=== PATIENT | female | born 1975 | race American Indian/Alaskan Native ===

== ENCOUNTER 2017-04-04 20:40 | Emergency (ER) | payer OTHER ==
[2017-04-04 21:24] LABS: Basophils % (Auto) 0.7 % (0.0-1.8); Eosinophils % (Auto) 2.3 % (0.0-4.3); Hematocrit 42.1 % (30.3-42.9); Hemoglobin 13.9 gm/dl (10.1-14.3); Mean Corpuscular HGB Conc 33 % (30-34); Mean Corpuscular Hemoglobin 30 pg (28-32); Mean Corpuscular Volume 91 fl (79-97); Platelet Count 250 K/mm3 (140-440); Red Blood Count 4.61 M/mm3 (3.65-5.03); Red Cell Distribution Width 13.3 % (13.2-15.2); White Blood Count 7.1 K/mm3 (4.5-11.0)
--- NOTE | 2017-04-04 22:24 | XRay Report ---
FINAL REPORT PROCEDURE: XR CHEST ROUTINE 2V TECHNIQUE: PA and lateral chest radiographs were obtained. CPT 31162 HISTORY: cough/ chest pain COMPARISON: No prior studies are available for comparison. FINDINGS: Heart: Upper normal size.. Mediastinum/Vessels: Normal. Lungs/Pleural space: Normal. Bony thorax: No acute osseous abnormality. Other: IMPRESSION: Heart size upper normal. No acute abnormalities are identified.. If symptoms persist or worsen consider follow-up chest x-ray or CT scan for further evaluation.
[2017-04-04 22:39] LABS: Anion Gap 19 mmol/L; BUN/Creatinine Ratio 9.16; Blood Urea Nitrogen 11 mg/dL (7-17); Carbon Dioxide 24 mmol/L (22-30); Chloride 102.6 mmol/L (98-107); Glucose 89 mg/dL (65-100); Potassium 3.9 mmol/L (3.6-5.0); Sodium 142 mmol/L (137-145)
[2017-04-05] MEDS ORDERED: MAGNESIUM SULFATE 2GM/50ML 2 GM/50 ML BAG IV ONE (07:08)
[2017-04-05] MEDS ORDERED: ATROVENT IH ONE (07:08)
[2017-04-05] MEDS ORDERED: PROVENTIL IH ONE (07:08)
--- NOTE | 2017-04-05 07:09 | Emergency Department Report ---
ED General Adult HPI - General Chief complaint: Chest Pain Stated complaint: CP/FALL/L KNEE/R LEG PAIN Time Seen by Provider: 04/05/17 06:56 Source: patient, RN notes reviewed, old records reviewed Mode of arrival: Ambulatory Limitations: No Limitations - History of Present Illness Initial comments: This is a 41-year-old female. She is previously unknown to me. She reports a past medical history of asthma, and hypertension. Her primary care doctor is with [facility]. The patient presents to the ER with a complaint of chest pain. The chest pain is central, and described as "tightness." It has been present for a few months. It does not radiate to the back, arms or neck. There is no nausea, vomiting or diaphoresis. Patient reports cough, wheezing and shortness of breath, consistent with her typical asthma. Patient reports a mechanical fall yesterday, landed on her right anterior tibial region, and left knee. Prior to the fall, she had no headache, neck pain, dizziness or lightheadedness. There is no posterior leg pain. There is no leg swelling. Does not take control tablets. No recent trips. No recent surgeries. No cocaine use. No recent aspirin use. -: Gradual Location: chest, left, right, lower extremity Radiation: non-radiation Severity scale (0 -10): 7 Quality: aching Consistency: intermittent Improves with: rest Worsens with: movement Associated Symptoms: chest pain, cough, shortness of breath - Related Data Previous Rx's Medication Instructions Recorded Last Taken Type Amoxicillin [Trimox CAP] 500 mg PO TID #30 capsule 01/10/14 Unknown Rx HYDROcodone/APAP 5-325 [[place] 1 each PO Q8HR PRN #10 tablet 01/10/14 Unknown Rx 5-325 mg TAB] Cyclobenzaprine [Flexeril 10mg] 10 mg PO TID PRN #14 tablet 01/07/15 Unknown Rx Ibuprofen [Motrin 800 MG tab] 800 mg PO Q8H #20 tablet 01/07/15 Unknown Rx Acetaminophen/Codeine [Tylenol 1 tab PO Q6H PRN #15 tab 06/24/15 Unknown Rx /Codeine # 3 tab] Albuterol Sulfate [Proair 90 mcg IH Q4HR PRN #2 aer.[email or web address] 04/05/17 Unknown Rx Respiclick] Benzonatate [Tessalon Perles] 100 mg PO Q8HR PRN #30 capsule 04/05/17 Unknown Rx Fluticasone [Flonase] 1 spray NS QDAY #1 bottle 04/05/17 Unknown Rx Ibuprofen [Motrin] 600 mg PO Q8H PRN #30 tablet 04/05/17 Unknown Rx Ipratropium [place] [Atrovent Hfa] 12.9 gm IH Q4HR #2 hfa.aer.ad 04/05/17 Unknown Rx predniSONE [Deltasone] 40 mg PO QDAY #8 tab 04/05/17 Unknown Rx Allergies Allergy/AdvReac Type Severity Reaction Status Date / Time No Known Allergies Allergy Unverified 12/22/13 15:11 ED Review of Systems ROS: Stated complaint: CP/FALL/L KNEE/R LEG PAIN Other details as noted in HPI Constitutional: denies: fever, malaise ENT: denies: epistaxis Respiratory: shortness of breath, wheezing Cardiovascular: chest pain Gastrointestinal: denies: vomiting Genitourinary: denies: dysuria Musculoskeletal: arthralgia, myalgia Skin: denies: lesions Neurological: denies: weakness ED Past Medical Hx - Past Medical History Hx Hypertension: No Hx CVA: No Hx Heart Attack/AMI: No Hx Congestive Heart Failure: No Hx Diabetes: No Hx Deep Vein Thrombosis: No Hx Pulmonary Embolism: No Hx GERD: No Hx Liver Disease: No Hx Renal Disease: No Hx Sickle Cell Disease: No Hx Arthritis: No Hx Headaches / Migraines: No Hx Seizures: No Hx Kidney Stones: No Hx Psychiatric Treatment: No Hx Asthma: Yes (as a child) Hx COPD: No Hx Tuberculosis: No Hx Dementia: No Hx HIV: No Additional medical history: 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 per opthalmologist Dr Ellington - Surgical History Hx Coronary Stent: No Hx Open Heart Surgery: No Hx Pacemaker: No Hx Internal Defibrillator: No Hx Cholecystectomy: No Hx Appendectomy: No Hx Breast Surgery: No Additional Surgical History: left ovary removed - Social History Smoking Status: Current Every Day Smoker Substance Use Type: None - Medications Home Medications: Home Medications Medication Instructions Recorded Confirmed Last Taken Type Amoxicillin [Trimox CAP] 500 mg PO TID #30 capsule 01/10/14 Unknown Rx HYDROcodone/APAP 5-325 [[place] 1 each PO Q8HR PRN #10 tablet 01/10/14 Unknown Rx 5-325 mg TAB] Cyclobenzaprine [Flexeril 10mg] 10 mg PO TID PRN #14 tablet 01/07/15 Unknown Rx Ibuprofen [Motrin 800 MG tab] 800 mg PO Q8H #20 tablet 01/07/15 Unknown Rx Acetaminophen/Codeine [Tylenol 1 tab PO Q6H PRN #15 tab 06/24/15 Unknown Rx /Codeine # 3 tab] Albuterol Sulfate [Proair 90 mcg IH Q4HR PRN #2 aer.[email or web address] 04/05/17 Unknown Rx Respiclick] Benzonatate [Tessalon Perles] 100 mg PO Q8HR PRN #30 capsule 04/05/17 Unknown Rx Fluticasone [Flonase] 1 spray NS QDAY #1 bottle 04/05/17 Unknown Rx Ibuprofen [Motrin] 600 mg PO Q8H PRN #30 tablet 04/05/17 Unknown Rx Ipratropium [place] [Atrovent Hfa] 12.9 gm IH Q4HR #2 hfa.aer.ad 04/05/17 Unknown Rx predniSONE [Deltasone] 40 mg PO QDAY #8 tab 04/05/17 Unknown Rx ED Physical Exam - General Limitations: No Limitations General appearance: alert, in no apparent distress - Head Head exam: Present: atraumatic, normocephalic - Eye Eye exam: Present: normal appearance, EOMI. Absent: nystagmus - ENT ENT exam: Present: normal exam, normal orophraynx, mucous membranes moist, normal external ear exam - Neck Neck exam: Present: normal inspection, full ROM. Absent: tenderness, meningismus - Respiratory Respiratory exam: Present: normal lung sounds bilaterally, wheezes, rhonchi. Absent: respiratory distress - Cardiovascular Cardiovascular Exam: Present: regular rate, normal rhythm, normal heart sounds. Absent: bradycardia, tachycardia, irregular rhythm, systolic murmur, diastolic murmur, rubs, gallop - GI/Abdominal GI/Abdominal exam: Present: soft, normal bowel sounds. Absent: distended, tenderness, guarding, rebound, rigid, pulsatile mass - Extremities Exam Extremities exam: Present: normal inspection, full ROM, tenderness (there is left knee tenderness. The compartments are soft. There is right distal tibial tenderness. The compartments are soft. 2+ pulses are noted in 4 extremities), normal capillary refill. Absent: pedal edema, joint swelling, calf tenderness - Back Exam Back exam: Present: normal inspection, full ROM. Absent: tenderness, CVA tenderness (R) - Neurological Exam Neurological exam: Present: alert, oriented X3, normal gait, other (Extraocular movements intact. Tongue midline. No facial droop. Facial sensation intact to light touch in the V1, V2, V3 distribution bilaterally. 5 and 5 strength in 4 extremities.. Sensation is intact to light touch in 4 extremities.). Absent : motor sensory deficit - Psychiatric Psychiatric exam: Present: normal affect, normal mood - Skin Skin exam: Present: warm, dry, intact, normal color. Absent: rash ED Course Vital Signs 04/04/17 04/05/17 04/05/17 20:59 03:53 06:20 Temperature 98.7 F 98.5 F Pulse Rate 78 73 Pulse Rate [ Anterior Left Throughout] Pulse Rate [ Anterior Right Throughout] Respiratory 17 18 Rate Respiratory Rate [Anterior Left Throughout ] Respiratory Rate [Anterior Right Throughout] Blood Pressure 170/125 181/118 Blood Pressure [Right] O2 Sat by Pulse 99 99 99 Oximetry 04/05/17 04/05/17 04/05/17 06:22 06:25 06:27 Temperature Pulse Rate 56 L Pulse Rate [ Anterior Left Throughout] Pulse Rate [ Anterior Right Throughout] Respiratory 18 Rate Respiratory Rate [Anterior Left Throughout ] Respiratory Rate [Anterior Right Throughout] Blood Pressure 169/85 169/85 169/85 Blood Pressure [Right] O2 Sat by Pulse 100 99 99 Oximetry 04/05/17 04/05/17 04/05/17 06:29 06:31 06:33 Temperature Pulse Rate 48 L Pulse Rate [ Anterior Left Throughout] Pulse Rate [ Anterior Right Throughout] Respiratory 14 Rate Respiratory Rate [Anterior Left Throughout ] Respiratory Rate [Anterior Right Throughout] Blood Pressure 169/85 169/85 169/85 Blood Pressure [Right] O2 Sat by Pulse 97 98 99 Oximetry 04/05/17 04/05/17 04/05/17 06:35 06:37 06:39 Temperature Pulse Rate Pulse Rate [ Anterior Left Throughout] Pulse Rate [ Anterior Right Throughout] Respiratory Rate Respiratory Rate [Anterior Left Throughout ] Respiratory Rate [Anterior Right Throughout] Blood Pressure 169/85 169/85 169/85 Blood Pressure [Right] O2 Sat by Pulse 98 99 99 Oximetry 04/05/17 04/05/17 04/05/17 06:41 06:43 06:51 Temperature Pulse Rate Pulse Rate [ Anterior Left Throughout] Pulse Rate [ Anterior Right Throughout] Respiratory 18 Rate Respiratory Rate [Anterior Left Throughout ] Respiratory Rate [Anterior Right Throughout] Blood Pressure 169/85 169/85 Blood Pressure [Right] O2 Sat by Pulse 99 99 99 Oximetry 04/05/17 04/05/17 04/05/17 07:27 07:49 07:51 Temperature Pulse Rate Pulse Rate [ 56 L Anterior Left Throughout] Pulse Rate [ Anterior Right Throughout] Respiratory Rate Respiratory 20 Rate [Anterior Left Throughout ] Respiratory Rate [Anterior Right Throughout] Blood Pressure 165/104 165/104 Blood Pressure [Right] O2 Sat by Pulse 100 100 Oximetry 04/05/17 04/05/17 04/05/17 07:53 07:55 07:57 Temperature Pulse Rate Pulse Rate [ Anterior Left Throughout] Pulse Rate [ Anterior Right Throughout] Respiratory Rate Respiratory Rate [Anterior Left Throughout ] Respiratory Rate [Anterior Right Throughout] Blood Pressure 165/104 165/104 165/104 Blood Pressure [Right] O2 Sat by Pulse 99 100 99 Oximetry 04/05/17 04/05/17 04/05/17 07:59 08:00 08:03 Temperature 97.7 F Pulse Rate 76 Pulse Rate [ Anterior Left Throughout] Pulse Rate [ Anterior Right Throughout] Respiratory 20 Rate Respiratory Rate [Anterior Left Throughout ] Respiratory Rate [Anterior Right Throughout] Blood Pressure 165/104 162/102 162/102 Blood Pressure 160/84 [Right] O2 Sat by Pulse 100 98 99 Oximetry 04/05/17 04/05/17 04/05/17 08:05 08:07 08:09 Temperature Pulse Rate Pulse Rate [ Anterior Left Throughout] Pulse Rate [ Anterior Right Throughout] Respiratory Rate Respiratory Rate [Anterior Left Throughout ] Respiratory Rate [Anterior Right Throughout] Blood Pressure 162/102 162/102 162/102 Blood Pressure [Right] O2 Sat by Pulse 99 99 99 Oximetry 04/05/17 04/05/17 04/05/17 08:11 08:13 08:15 Temperature Pulse Rate Pulse Rate [ Anterior Left Throughout] Pulse Rate [ Anterior Right Throughout] Respiratory Rate Respiratory Rate [Anterior Left Throughout ] Respiratory Rate [Anterior Right Throughout] Blood Pressure 162/102 162/102 162/102 Blood Pressure [Right] O2 Sat by Pulse 100 99 100 Oximetry 04/05/17 04/05/17 04/05/17 08:17 08:19 08:21 Temperature Pulse Rate Pulse Rate [ Anterior Left Throughout] Pulse Rate [ Anterior Right Throughout] Respiratory Rate Respiratory Rate [Anterior Left Throughout ] Respiratory Rate [Anterior Right Throughout] Blood Pressure 162/102 162/102 162/102 Blood Pressure [Right] O2 Sat by Pulse 99 100 92 Oximetry 04/05/17 04/05/17 04/05/17 08:23 08:25 08:27 Temperature Pulse Rate Pulse Rate [ Anterior Left Throughout] Pulse Rate [ Anterior Right Throughout] Respiratory Rate Respiratory Rate [Anterior Left Throughout ] Respiratory Rate [Anterior Right Throughout] Blood Pressure 162/102 162/102 162/102 Blood Pressure [Right] O2 Sat by Pulse 97 97 99 Oximetry 04/05/17 04/05/17 04/05/17 08:29 08:31 08:33 Temperature Pulse Rate Pulse Rate [ Anterior Left Throughout] Pulse Rate [ Anterior Right Throughout] Respiratory Rate Respiratory Rate [Anterior Left Throughout ] Respiratory Rate [Anterior Right Throughout] Blood Pressure 162/102 162/102 162/102 Blood Pressure [Right] O2 Sat by Pulse 100 100 99 Oximetry 04/05/17 04/05/17 04/05/17 08:35 08:37 08:39 Temperature Pulse Rate Pulse Rate [ Anterior Left Throughout] Pulse Rate [ Anterior Right Throughout] Respiratory Rate Respiratory Rate [Anterior Left Throughout ] Respiratory Rate [Anterior Right Throughout] Blood Pressure 162/102 162/102 162/102 Blood Pressure [Right] O2 Sat by Pulse 99 100 99 Oximetry 04/05/17 04/05/17 04/05/17 08:41 08:43 08:45 Temperature Pulse Rate Pulse Rate [ Anterior Left Throughout] Pulse Rate [ Anterior Right Throughout] Respiratory Rate Respiratory Rate [Anterior Left Throughout ] Respiratory Rate [Anterior Right Throughout] Blood Pressure 162/102 162/102 162/102 Blood Pressure [Right] O2 Sat by Pulse 100 100 98 Oximetry 04/05/17 04/05/17 04/05/17 08:46 08:49 08:51 Temperature Pulse Rate Pulse Rate [ Anterior Left Throughout] Pulse Rate [ Anterior Right Throughout] Respiratory Rate Respiratory Rate [Anterior Left Throughout ] Respiratory Rate [Anterior Right Throughout] Blood Pressure 158/98 158/98 158/98 Blood Pressure [Right] O2 Sat by Pulse 100 98 100 Oximetry 04/05/17 04/05/17 04/05/17 08:53 08:55 08:57 Temperature Pulse Rate Pulse Rate [ Anterior Left Throughout] Pulse Rate [ Anterior Right Throughout] Respiratory Rate Respiratory Rate [Anterior Left Throughout ] Respiratory Rate [Anterior Right Throughout] Blood Pressure 158/98 162/102 162/102 Blood Pressure [Right] O2 Sat by Pulse 100 98 99 Oximetry 04/05/17 04/05/17 04/05/17 08:59 09:01 09:03 Temperature Pulse Rate Pulse Rate [ Anterior Left Throughout] Pulse Rate [ Anterior Right Throughout] Respiratory Rate Respiratory Rate [Anterior Left Throughout ] Respiratory Rate [Anterior Right Throughout] Blood Pressure 162/102 141/88 141/88 Blood Pressure [Right] O2 Sat by Pulse 98 100 98 Oximetry 04/05/17 04/05/17 04/05/17 09:05 09:07 09:09 Temperature Pulse Rate Pulse Rate [ Anterior Left Throughout] Pulse Rate [ Anterior Right Throughout] Respiratory Rate Respiratory Rate [Anterior Left Throughout ] Respiratory Rate [Anterior Right Throughout] Blood Pressure 141/88 141/88 141/88 Blood Pressure [Right] O2 Sat by Pulse 98 100 96 Oximetry 04/05/17 04/05/17 04/05/17 09:11 09:13 09:15 Temperature Pulse Rate Pulse Rate [ Anterior Left Throughout] Pulse Rate [ Anterior Right Throughout] Respiratory Rate Respiratory Rate [Anterior Left Throughout ] Respiratory Rate [Anterior Right Throughout] Blood Pressure 141/88 141/88 141/88 Blood Pressure [Right] O2 Sat by Pulse 96 99 96 Oximetry 04/05/17 04/05/17 04/05/17 09:17 09:19 09:21 Temperature Pulse Rate Pulse Rate [ Anterior Left Throughout] Pulse Rate [ Anterior Right Throughout] Respiratory Rate Respiratory Rate [Anterior Left Throughout ] Respiratory Rate [Anterior Right Throughout] Blood Pressure 141/88 141/88 141/88 Blood Pressure [Right] O2 Sat by Pulse 95 96 96 Oximetry 04/05/17 04/05/17 04/05/17 09:23 09:25 09:26 Temperature Pulse Rate Pulse Rate [ Anterior Left Throughout] Pulse Rate [ Anterior Right Throughout] Respiratory Rate Respiratory Rate [Anterior Left Throughout ] Respiratory Rate [Anterior Right Throughout] Blood Pressure 141/88 141/88 154/82 Blood Pressure [Right] O2 Sat by Pulse 99 100 99 Oximetry 04/05/17 09:45 Temperature Pulse Rate Pulse Rate [ Anterior Left Throughout] Pulse Rate [ 58 L Anterior Right Throughout] Respiratory Rate Respiratory Rate [Anterior Left Throughout ] Respiratory 20 Rate [Anterior Right Throughout] Blood Pressure Blood Pressure [Right] O2 Sat by Pulse Oximetry ED Medical Decision Making - Lab Data Result diagrams: 04/04/17 21:10 04/04/17 21:10 Vital Signs 04/04/17 04/05/17 04/05/17 20:59 03:53 06:20 Temperature 98.7 F 98.5 F Pulse Rate 78 73 Pulse Rate [ Anterior Left Throughout] Respiratory 17 18 Rate Respiratory Rate [Anterior Left Throughout ] Blood Pressure 170/125 181/118 O2 Sat by Pulse 99 99 99 Oximetry 04/05/17 04/05/17 04/05/17 06:22 06:25 06:27 Temperature Pulse Rate 56 L Pulse Rate [ Anterior Left Throughout] Respiratory 18 Rate Respiratory Rate [Anterior Left Throughout ] Blood Pressure 169/85 169/85 169/85 O2 Sat by Pulse 100 99 99 Oximetry 04/05/17 04/05/17 04/05/17 06:29 06:31 06:33 Temperature Pulse Rate 48 L Pulse Rate [ Anterior Left Throughout] Respiratory 14 Rate Respiratory Rate [Anterior Left Throughout ] Blood Pressure 169/85 169/85 169/85 O2 Sat by Pulse 97 98 99 Oximetry 04/05/17 04/05/17 04/05/17 06:35 06:37 06:39 Temperature Pulse Rate Pulse Rate [ Anterior Left Throughout] Respiratory Rate Respiratory Rate [Anterior Left Throughout ] Blood Pressure 169/85 169/85 169/85 O2 Sat by Pulse 98 99 99 Oximetry 04/05/17 04/05/17 04/05/17 06:41 06:43 06:51 Temperature Pulse Rate Pulse Rate [ Anterior Left Throughout] Respiratory 18 Rate Respiratory Rate [Anterior Left Throughout ] Blood Pressure 169/85 169/85 O2 Sat by Pulse 99 99 99 Oximetry 04/05/17 07:27 Temperature Pulse Rate Pulse Rate [ 56 L Anterior Left Throughout] Respiratory Rate Respiratory 20 Rate [Anterior Left Throughout ] Blood Pressure O2 Sat by Pulse Oximetry Lab Results 04/04/17 04/04/17 04/04/17 Range/Units 21:10 21:10 21:15 WBC 7.1 (4.5-11.0) K/mm3 RBC 4.61 (3.65-5.03) M/mm3 Hgb 13.9 (10.1-14.3) gm/dl Hct 42.1 (30.3-42.9) % MCV 91 (79-97) fl MCH 30 (28-32) pg MCHC 33 (30-34) % RDW 13.3 (13.2-15.2) % Plt Count 250 (140-440) K/mm3 Lymph % (Auto) 40.0 H (13.4-35.0) % [place] % (Auto) 5.3 (0.0-7.3) % Eos % (Auto) 2.3 (0.0-4.3) % Baso % (Auto) 0.7 (0.0-1.8) % Lymph # 2.8 (1.2-5.4) K/mm3 [place] # 0.4 (0.0-0.8) K/mm3 Eos # 0.2 (0.0-0.4) K/mm3 Baso # 0.0 (0.0-0.1) K/mm3 Seg Neutrophils % 51.7 (40.0-70.0) % Seg Neutrophils # 3.7 (1.8-7.7) K/mm3 PT (12.2-14.9) Sec. INR (0.87-1.13) APTT (24.2-36.6) Sec. Sodium 142 (137-145) mmol/L Potassium 3.9 (3.6-5.0) mmol/L Chloride 102.6 (98-107) mmol/L Carbon Dioxide 24 (22-30) mmol/L Anion Gap 19 mmol/L BUN 11 (7-17) mg/dL Creatinine 1.2 (0.7-1.2) mg/dL Estimated GFR 60 ml/min BUN/Creatinine Ratio 9.16 % Glucose 89 (65-100) mg/dL Calcium 9.0 (8.4-10.2) mg/dL Troponin T < 0.010 (0.00-0.029) ng/mL NT-Pro-B Natriuret Pep (0-450) pg/mL Urine HCG, Qual Negative (Negative) 04/05/17 04/05/17 04/05/17 Range/Units 00:11 03:13 07:16 WBC (4.5-11.0) K/mm3 RBC (3.65-5.03) M/mm3 Hgb (10.1-14.3) gm/dl Hct (30.3-42.9) % MCV (79-97) fl MCH (28-32) pg MCHC (30-34) % RDW (13.2-15.2) % Plt Count (140-440) K/mm3 Lymph % (Auto) (13.4-35.0) % [place] % (Auto) (0.0-7.3) % Eos % (Auto) (0.0-4.3) % Baso % (Auto) (0.0-1.8) % Lymph # (1.2-5.4) K/mm3 [place] # (0.0-0.8) K/mm3 Eos # (0.0-0.4) K/mm3 Baso # (0.0-0.1) K/mm3 Seg Neutrophils % (40.0-70.0) % Seg Neutrophils # (1.8-7.7) K/mm3 PT 12.1 L (12.2-14.9) Sec. INR 0.90 (0.87-1.13) APTT 31.2 (24.2-36.6) Sec. Sodium (137-145) mmol/L Potassium (3.6-5.0) mmol/L Chloride (98-107) mmol/L Carbon Dioxide (22-30) mmol/L Anion Gap mmol/L BUN (7-17) mg/dL Creatinine (0.7-1.2) mg/dL Estimated GFR ml/min BUN/Creatinine Ratio % Glucose (65-100) mg/dL Calcium (8.4-10.2) mg/dL Troponin T < 0.010 < 0.010 (0.00-0.029) ng/mL NT-Pro-B Natriuret Pep (0-450) pg/mL Urine HCG, Qual (Negative) 04/05/17 Range/Units 07:16 WBC (4.5-11.0) K/mm3 RBC (3.65-5.03) M/mm3 Hgb (10.1-14.3) gm/dl Hct (30.3-42.9) % MCV (79-97) fl MCH (28-32) pg MCHC (30-34) % RDW (13.2-15.2) % Plt Count (140-440) K/mm3 Lymph % (Auto) (13.4-35.0) % [place] % (Auto) (0.0-7.3) % Eos % (Auto) (0.0-4.3) % Baso % (Auto) (0.0-1.8) % Lymph # (1.2-5.4) K/mm3 [place] # (0.0-0.8) K/mm3 Eos # (0.0-0.4) K/mm3 Baso # (0.0-0.1) K/mm3 Seg Neutrophils % (40.0-70.0) % Seg Neutrophils # (1.8-7.7) K/mm3 PT (12.2-14.9) Sec. INR (0.87-1.13) APTT (24.2-36.6) Sec. Sodium (137-145) mmol/L Potassium (3.6-5.0) mmol/L Chloride (98-107) mmol/L Carbon Dioxide (22-30) mmol/L Anion Gap mmol/L BUN (7-17) mg/dL Creatinine (0.7-1.2) mg/dL Estimated GFR ml/min BUN/Creatinine Ratio % Glucose (65-100) mg/dL Calcium (8.4-10.2) mg/dL Troponin T (0.00-0.029) ng/mL NT-Pro-B Natriuret Pep 59.98 (0-450) pg/mL Urine HCG, Qual (Negative) - EKG Data -: EKG Interpreted by Me - EKG Data 04/05/17 08:24 EKG #1 demonstrates normal sinus, 70 beats per minute, normal intervals, normal axis, not morphologically consistent with STEMI. EKG #2 demonstrates normal sinus, 60 bpm, normal intervals, normal axis, borderline atrial enlargement. Morphologically consistent with STEMI. Both EKGs appeared to be unchanged from prior EKG from May 2013. - Radiology Data Radiology results: report reviewed, image reviewed interpreted by me: X-ray of the chest is negative for acute disease. Borderline cardiomegaly. Bilateral knee x-ray negative for fracture/dislocation. Right tib-fib x-ray negative for fracture/dislocation. - Medical Decision Making Differential diagnosis: Acute coronary syndrome, costochondritis, pneumonia, pleuritis, pericarditis, myocarditis, extremity fracture/dislocation/contusion/ asthma exacerbation Assessment and plan: 41-year-old female with 2 complaints. In terms of the patient's chest pain, the chest pain is reproducible, EKG unchanged 2, troponin negative 3, low risk by JANETH score, low risk by heart score, low risk by well's criteria, perc negative. She is found to be wheezing. X-ray of the chest is negative for infiltrate. She is given albuterol, Atrovent and steroids, and her wheezing improved. Her pain is improved with IV Toradol. X-ray of the lower extremities does not demonstrate fracture or dislocation. Case was discussed with Dr. Renetta Guevara, [facility] physician/coordinator, and the patient is now scheduled to follow up at the [facility] medical office with her primary care doctor on April 07 at 2 PM, with Dr. Al. Given that patient has been having weeks to months of chest discomfort, I don't believe she requires admission to the hospital for ACS risk stratification. Critical care attestation.: If time is entered above; I have spent that time in minutes in the direct care of this critically ill patient, excluding procedure time. ED Disposition Clinical Impression: Asthma exacerbation Disposition: DC-01 TO HOME OR SELFCARE Is pt being admited?: No Does the pt Need Aspirin: No Condition: Stable Instructions: Asthma (ED) Additional Instructions: Take the medications as directed. Follow-up on April 07, 2 PM, with the [facility] medical office; you have an appointment with Dr [facility] [employer] Family practice physician in the [place], [place] 4.7 sc Address: [address] [place], [place] [address] [address] Hours: Open today Open 24 hours Suggest an edit Return to the ER right away with fevers, chills, chest pain, shortness of breath , confusion, intractable nausea or vomiting, inability to tolerate liquid feeds. Prescriptions: Albuterol Sulfate [Proair Respiclick] 90 mcg IH Q4HR PRN #2 aer.pow.ba PRN Reason: Wheezing Benzonatate [Tessalon Perles] 100 mg PO Q8HR PRN #30 capsule PRN Reason: Cough Fluticasone [Flonase] 1 spray NS QDAY #1 bottle Ibuprofen [Motrin] 600 mg PO Q8H PRN #30 tablet PRN Reason: Pain Ipratropium Preble [Atrovent Hfa] 12.9 gm IH Q4HR #2 hfa.aer.ad predniSONE [Deltasone] 40 mg PO QDAY #8 tab Referrals: [facility] [Other] - 3-5 Days Forms: Work/School Release Form(ED)
[2017-04-05] MEDS ORDERED: TORADOL IV ONE (07:21)
[2017-04-05 07:59] LABS: INR 0.9 (0.87-1.13)
[2017-04-05 08:00] LABS: Partial Thromboplastin Time 31.2 Sec. (24.2-36.6)
--- NOTE | 2017-04-05 08:33 | XRay Report ---
Bilateral knees, 2 views of each: Trauma, pain. There is good alignment. No fracture and no swelling identified. The articular margins are smooth. Well-preserved joint spaces. Impressions: Normal exam bilaterally.
--- NOTE | 2017-04-05 08:38 | XRay Report ---
RIGHT TIBIA AND FIBULA, ONE VIEW HISTORY: Pain after fall. FINDINGS: Single AP view of the right tibia and fibula demonstrates no abnormality. The bony structures soft tissues are unremarkable. IMPRESSION: Unremarkable single view of the right tibia and fibula.
[2017-04-05 09:44] VITALS: BP 154/82
== END 2017-04-05 09:47 | disposition home or self-care (01) ==
LOC: ED 20:40
DX: J45.901 Unspecified asthma with (acute) exacerbation (principal); F17.210 Nicotine dependence, cigarettes, uncomplicated
CPT/HCPCS: 36415; 71020; 73560; 73590; 80048; 81025; 83880; 84484; 85025; 85610; 85730; 93005; 93010; 94640; 94644; 96365; 96375; 99285; J1885; J2930; J3475

== ENCOUNTER 2020-12-27 00:06 | Emergency (ER) | payer OTHER ==
[2020-12-27] MEDS ORDERED: ALBUTEROL 2.5 MG/3 ML NEBU IH ONE ×2 (00:17→02:08)
[2020-12-27] MEDS ORDERED: IPRATROPIUM 0.02% NEBU 2.5 ML IH ONE (00:17)
[2020-12-27] MEDS ORDERED: dexAMETHasone 20 MG/5 ML VIAL IV ONE (00:17)
--- NOTE | 2020-12-27 00:18 | Event Note ---
ED Screening Note ED Screening Note: Asthma exacerbation that began this morning She used 2 nebulizer treatments at home but now is out of her solution Wheezing and shortness of breath Poor air movement This initial assessment/diagnostic orders/clinical plan/treatment(s) is/are subject to change based on patients health status, clinical progression and re- assessment by fellow clinical providers in the ED. Further treatment and workup at subsequent clinical providers discretion. Patient/guardian urged not to elope from the ED as their condition may be serious if not clinically assessed and managed. Initial orders include: Meds, x-ray
--- NOTE | 2020-12-27 00:50 | XRay Report ---
CHEST 1 VIEW INDICATION / CLINICAL INFORMATION: SOB/wheezing. COMPARISON: Chest radiograph 11/28/2019 FINDINGS: SUPPORT DEVICES: None. HEART / MEDIASTINUM: No significant abnormality. LUNGS / PLEURA: No significant pulmonary or pleural abnormality. No pneumothorax. ADDITIONAL FINDINGS: No significant additional findings. IMPRESSION: 1. No acute findings. Signer Name: Rachel Jacobs MD Signed: 12/27/2020 12:46 AM Workstation Name: [id number]
--- NOTE | 2020-12-27 01:20 | Emergency Department Report ---
ED General Adult HPI - General Chief complaint: Adult Asthma Stated complaint: CHEST PAIN/ASTHMA Time Seen by Provider: 12/27/20 00:17 Source: family Mode of arrival: Ambulatory Limitations: No Limitations - History of Present Illness Initial comments: Patient is a 45-year-old -[place] female with history of asthma who presents for Asthma exacerbation that began this morning She used 2 nebulizer treatments at home but now is out of her solution. States associated wheezing and shortness of breath rated at 4/10. Patient denies chest pain, nausea vomiting, there is no fever chills. Symptoms are exacerbated by environmental exposure. Symptoms are relieved by Albuterol inhaler intermittently. However she is out of medication at this time. - Related Data Previous Rx's Medication Instructions Recorded Last Taken Type Ipratropium [place] [Atrovent Hfa] 12.9 gm IH Q4HR #2 hfa.aer.ad 04/05/17 Unknown Rx ALBUTEROL NEB's [Proventil 0.083% 2.5 mg IH TID PRN #1 box 11/28/19 Unknown Rx NEBS] Albuterol Sulfate [Proair 90 mcg IH Q4HR PRN #2 aer.pow.ba 11/28/19 Unknown Rx Respiclick] Azithromycin [Zithromax TAB] 250 mg PO QDAY #4 tablet 11/28/19 Unknown Rx Benzonatate [Tessalon Perles] 100 mg PO Q8HR PRN #30 capsule 11/28/19 Unknown Rx Fluticasone [Flonase] 1 spray NS QDAY #1 bottle 11/28/19 Unknown Rx methylPREDNISolone [Medrol 4MG 4 mg PO FS #1 tab.ds.pk 11/28/19 Unknown Rx DOSEPAK (21 tabs)] Acetaminophen/Codeine [Tylenol 1 tab PO Q6H PRN #12 tab 12/27/20 Unknown Rx /Codeine # 3 tab] Albuterol Mdi (or & Nicu Only) 2 puff IH QID PRN #8.5 gram 12/27/20 Unknown Rx [ProAir HFA Inhaler] Azithromycin 500 mg PO DAILY #5 tablet 12/27/20 Unknown Rx dexAMETHasone [Decadron] 4 mg PO BID #6 tablet 12/27/20 Unknown Rx Allergies Allergy/AdvReac Type Severity Reaction Status Date / Time No Known Allergies Allergy Unverified 12/22/13 15:11 ED Review of Systems ROS: Stated complaint: CHEST PAIN/ASTHMA Other details as noted in HPI Constitutional: denies: chills, fever Eyes: denies: eye pain, eye discharge, vision change ENT: congestion Respiratory: cough, shortness of breath, wheezing Cardiovascular: denies: chest pain, palpitations Endocrine: no symptoms reported Gastrointestinal: denies: abdominal pain, nausea, vomiting, diarrhea, constipation, hematemesis, melena Genitourinary: denies: urgency, dysuria, frequency, hematuria, discharge Musculoskeletal: denies: back pain, joint swelling, arthralgia Skin: denies: rash, lesions Neurological: denies: headache, weakness, paresthesias, vertigo Psychiatric: denies: anxiety, depression Hematological/Lymphatic: denies: easy bleeding, easy bruising ED Past Medical Hx - Past Medical History Previous Medical History?: Yes Hx Hypertension: No Hx CVA: No Hx Heart Attack/AMI: No Hx Congestive Heart Failure: No Hx Diabetes: No Hx Deep Vein Thrombosis: No Hx Pulmonary Embolism: No Hx GERD: No Hx Liver Disease: No Hx Renal Disease: No Hx Sickle Cell Disease: No Hx Arthritis: No Hx Headaches / Migraines: No Hx Seizures: No Hx Kidney Stones: No Hx Psychiatric Treatment: No Hx Asthma: Yes (as a child) Hx COPD: No Hx Tuberculosis: No Hx Dementia: No Hx HIV: No Additional medical history: 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 per opthalmologist Dr Ellington - Surgical History Past Surgical History?: Yes Hx Coronary Stent: No Hx Open Heart Surgery: No Hx Pacemaker: No Hx Internal Defibrillator: No Hx Cholecystectomy: No Hx Appendectomy: No Hx Breast Surgery: No Additional Surgical History: left ovary removed - Social History Smoking Status: Former Smoker Substance Use Type: None - Medications Home Medications: Home Medications Medication Instructions Recorded Confirmed Last Taken Type Ipratropium [place] [Atrovent Hfa] 12.9 gm IH Q4HR #2 hfa.aer.ad 04/05/17 Unknown Rx ALBUTEROL NEB's [Proventil 0.083% 2.5 mg IH TID PRN #1 box 11/28/19 Unknown Rx NEBS] Albuterol Sulfate [Proair 90 mcg IH Q4HR PRN #2 aer.pow.ba 11/28/19 Unknown Rx Respiclick] Azithromycin [Zithromax TAB] 250 mg PO QDAY #4 tablet 11/28/19 Unknown Rx Benzonatate [Tessalon Perles] 100 mg PO Q8HR PRN #30 capsule 11/28/19 Unknown Rx Fluticasone [Flonase] 1 spray NS QDAY #1 bottle 11/28/19 Unknown Rx methylPREDNISolone [Medrol 4MG 4 mg PO FS #1 tab.ds.pk 11/28/19 Unknown Rx DOSEPAK (21 tabs)] Acetaminophen/Codeine [Tylenol 1 tab PO Q6H PRN #12 tab 12/27/20 Unknown Rx /Codeine # 3 tab] Albuterol Mdi (or & Nicu Only) 2 puff IH QID PRN #8.5 gram 12/27/20 Unknown Rx [ProAir HFA Inhaler] Azithromycin 500 mg PO DAILY #5 tablet 12/27/20 Unknown Rx dexAMETHasone [Decadron] 4 mg PO BID #6 tablet 12/27/20 Unknown Rx ED Physical Exam - General Limitations: No Limitations General appearance: alert, in no apparent distress - Head Head exam: Present: atraumatic, normocephalic - Eye Eye exam: Present: normal appearance, EOMI Pupils: Present: normal accommodation - ENT ENT exam: Present: mucous membranes moist - Neck Neck exam: Present: normal inspection, full ROM. Absent: tenderness - Respiratory Respiratory exam: Present: normal lung sounds bilaterally. Absent: wheezes, chest wall tenderness - Cardiovascular Cardiovascular Exam: Present: regular rate, normal rhythm, normal heart sounds. Absent: systolic murmur, diastolic murmur, rubs, gallop - GI/Abdominal GI/Abdominal exam: Present: soft, normal bowel sounds. Absent: distended, tenderness, bruit, hernia - Rectal Rectal exam: Present: deferred - Extremities Exam Extremities exam: Present: normal inspection, full ROM. Absent: tenderness - Back Exam Back exam: Present: normal inspection, full ROM. Absent: CVA tenderness (R), CVA tenderness (L), vertebral tenderness - Neurological Exam Neurological exam: Present: alert, oriented X3, CN II-XII intact, normal gait, reflexes normal. Absent: motor sensory deficit - Expanded Neurological Exam Expanded Patient oriented to: Present: person, place, time Speech: Present: fluid speech Cranial nerves: EOM's Intact: Normal, Gag Reflex: Normal, Tongue Deviation: Normal, Nystagmus: Normal Cerebellar function: Finger to Nose: Normal, Heel to Thompson: Normal Upper motor neuron: Marco A Neglect: Normal Motor strength exam: RUE: 5, LUE: 5, RLE: 5, LLE: 5 DTR: knee (R): 2+, knee (L): 2+ Best Eye Response ([place]): (4) open spontaneously Best Motor Response (Andrea): (6) obeys commands Best Verbal Response (Andrea): (5) oriented [place] Total: 15 - Psychiatric Psychiatric exam: Present: normal affect, normal mood, anxious - Skin Skin exam: Present: warm, dry, intact, normal color. Absent: rash ED Course Vital Signs 12/27/20 00:22 Temperature 98.7 F Pulse Rate 93 H Respiratory 20 Rate Blood Pressure 161/110 O2 Sat by Pulse 95 Oximetry ED Medical Decision Making - Radiology Data Radiology results: report reviewed, image reviewed FINDINGS: SUPPORT DEVICES: None. HEART / MEDIASTINUM: No significant abnormality. LUNGS / PLEURA: No significant pulmonary or pleural abnormality. No pneumothorax. ADDITIONAL FINDINGS: No significant additional findings. IMPRESSION: 1. No acute findings. Signer Name: Rachel Jacobs MD Signed: 12/27/2020 12:46 AM Workstation Name: [id number] Transcribed By: C Dictated By: Rachel Jacobs MD Electronically Authenticated By: Rachel Jacobs MD Signed Date/Time: 12/27/2045 DD/ TD/TT: - Medical Decision Making breathing improved , pt ambulated from room and back to room without increased sob or wheezing, pt states breathing returned to baseline, plan dc to home with rx , pt will follow up with pcp in 2-3 days. Critical care attestation.: If time is entered above; I have spent that time in minutes in the direct care of this critically ill patient, excluding procedure time. ED Disposition Clinical Impression: Asthma attack Qualifiers: Asthma severity: moderate Asthma persistence: persistent Qualified Code(s): J45.41 - Moderate persistent asthma with (acute) exacerbation Disposition: DC-01 TO HOME OR SELFCARE Is pt being admited?: No Does the pt Need Aspirin: No Condition: Stable Instructions: Asthma, Adult, Asthma Attack Additional Instructions: take medications as pescribed , return to emergency if symptoms worsen. Prescriptions: Azithromycin 500 mg PO DAILY #5 tablet dexAMETHasone [Decadron] 4 mg PO BID #6 tablet Albuterol Mdi (or & Nicu Only) [ProAir HFA Inhaler] 2 puff IH QID PRN #8.5 gram PRN Reason: Shortness Of Breath Acetaminophen/Codeine [Tylenol /Codeine # 3 tab] 1 tab PO Q6H PRN #12 tab PRN Reason: Cough Referrals: NEREYDA FARAH MD [Staff Physician] - 3-5 Days AVEL VALENTE MD [Staff Physician] - 3-5 Days Forms: Work/School Release Form(ED) Time of Disposition: 03:21
[2020-12-27] MEDS ORDERED: hydrALAZINE 25 MG TAB PO ONE (04:07)
[2020-12-27 06:13] VITALS: BP 176/94
== END 2020-12-27 04:45 | disposition home or self-care (01) ==
LOC: ED 00:06
DX: J45.909 Unspecified asthma, uncomplicated (principal); Z79.899 Other long term (current) drug therapy; Z98.890 Other specified postprocedural states
CPT/HCPCS: 71045; 94640; 96374; 99284; J1100

== ENCOUNTER 2021-11-07 10:48 | Emergency (ER) | payer OTHER ==
[2021-11-07] MEDS ORDERED: methylPREDNISolone Sod Succinate 125 MG/2 ML INJ IV ONE (11:12)
[2021-11-07] MEDS ORDERED: ALBUTEROL 2.5 MG/3 ML NEBU IH ONE (11:12)
[2021-11-07] MEDS ORDERED: IPRATROPIUM 0.02% NEBU 2.5 ML IH ONE (11:12)
[2021-11-07] MEDS ORDERED: MAGNESIUM SULFATE 2 GM/50 ML BAG IV ONE (11:12)
--- NOTE | 2021-11-07 11:53 | Emergency Department Report ---
ED General Adult HPI - General Chief complaint: Dyspnea/Respdistress Stated complaint: TANJA Time Seen by Provider: 11/07/21 10:57 Source: patient Mode of arrival: Stretcher Limitations: No Limitations - History of Present Illness Initial comments: The patient presents to the emergency department with a chief complaint of asthma attack. Patient states that her asthma began to act out while she was at work. Patient states that she had to elevate her voice to speak to think he is at her job which resulted in her having difficulty breathing. Patient denies any chest pain or abdominal pain. Patient states she received 1 albuterol treatment in route which improved her symptoms -: Sudden Severity scale (0 -10): 0 Consistency: other (Improved) Improves with: none Worsens with: none Associated Symptoms: denies other symptoms Treatments Prior to Arrival: none - Related Data Previous Rx's Medication Instructions Recorded Last Taken Type Ipratropium Silver [Atrovent Hfa] 12.9 gm IH Q4HR #2 hfa.aer.ad 04/05/17 Unknown Rx ALBUTEROL NEB's [Proventil 0.083% 2.5 mg IH TID PRN #1 box 11/28/19 Unknown Rx NEBS] Albuterol Sulfate [Proair 90 mcg IH Q4HR PRN #2 aer.pow.ba 11/28/19 Unknown Rx Respiclick] Azithromycin [Zithromax TAB] 250 mg PO QDAY #4 tablet 11/28/19 Unknown Rx Benzonatate [Tessalon Perles] 100 mg PO Q8HR PRN #30 capsule 11/28/19 Unknown Rx Fluticasone [Flonase] 1 spray NS QDAY #1 bottle 11/28/19 Unknown Rx methylPREDNISolone [Medrol 4MG 4 mg PO FS #1 tab.ds.pk 11/28/19 Unknown Rx DOSEPAK (21 tabs)] Acetaminophen/Codeine [Tylenol 1 tab PO Q6H PRN #12 tab 12/27/20 Unknown Rx /Codeine # 3 tab] Albuterol Mdi (or & Nicu Only) 2 puff IH QID PRN #8.5 gram 12/27/20 Unknown Rx [ProAir HFA Inhaler] Azithromycin 500 mg PO DAILY #5 tablet 12/27/20 Unknown Rx amLODIPine 5 mg PO DAILY #30 tab 12/27/20 Unknown Rx dexAMETHasone [Decadron] 4 mg PO BID #6 tablet 12/27/20 Unknown Rx Albuterol Sulfate [Albuterol 0.63% 0.63 mg IH Q4HR PRN #30 ml 11/07/21 Unknown Rx NEBS] guaiFENesin/CODEINE [Robitussin AC] 5 ml PO Q12HR PRN #180 oral.liqd 11/07/21 Unknown Rx predniSONE [Deltasone] 20 mg PO DAILY #15 tablet 11/07/21 Unknown Rx Allergies Allergy/AdvReac Type Severity Reaction Status Date / Time No Known Allergies Allergy Unverified 12/22/13 15:11 ED Review of Systems ROS: Stated complaint: TANJA Other details as noted in HPI Comment: All other systems reviewed and negative Constitutional: denies: chills, fever Eyes: denies: eye pain, eye discharge, vision change ENT: denies: ear pain, throat pain Respiratory: shortness of breath. denies: cough, wheezing Cardiovascular: denies: chest pain, palpitations Endocrine: no symptoms reported Gastrointestinal: denies: abdominal pain, nausea, diarrhea Genitourinary: denies: urgency, dysuria, discharge Musculoskeletal: denies: back pain, joint swelling, arthralgia Skin: denies: rash, lesions Neurological: denies: headache, weakness, paresthesias Psychiatric: denies: anxiety, depression Hematological/Lymphatic: denies: easy bleeding, easy bruising ED Past Medical Hx - Past Medical History Previous Medical History?: Yes Hx Hypertension: No Hx CVA: No Hx Heart Attack/AMI: No Hx Congestive Heart Failure: No Hx Diabetes: No Hx Deep Vein Thrombosis: No Hx Pulmonary Embolism: No Hx GERD: No Hx Liver Disease: No Hx Renal Disease: No Hx Sickle Cell Disease: No Hx Arthritis: No Hx Headaches / Migraines: No Hx Seizures: No Hx Kidney Stones: No Hx Psychiatric Treatment: No Hx Asthma: Yes (as a child) Hx COPD: No Hx Tuberculosis: No Hx Dementia: No Hx HIV: No Additional medical history: 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 per opthalmologist Dr Ellington - Surgical History Hx Coronary Stent: No Hx Open Heart Surgery: No Hx Pacemaker: No Hx Internal Defibrillator: No Hx Cholecystectomy: No Hx Appendectomy: No Hx Breast Surgery: No Additional Surgical History: left ovary removed - Social History Smoking Status: Former Smoker Substance Use Type: None - Medications Home Medications: Home Medications Medication Instructions Recorded Confirmed Last Taken Type Ipratropium Silver [Atrovent Hfa] 12.9 gm IH Q4HR #2 hfa.aer.ad 04/05/17 Unknown Rx ALBUTEROL NEB's [Proventil 0.083% 2.5 mg IH TID PRN #1 box 11/28/19 Unknown Rx NEBS] Albuterol Sulfate [Proair 90 mcg IH Q4HR PRN #2 aer.pow.ba 11/28/19 Unknown Rx Respiclick] Azithromycin [Zithromax TAB] 250 mg PO QDAY #4 tablet 11/28/19 Unknown Rx Benzonatate [Tessalon Perles] 100 mg PO Q8HR PRN #30 capsule 11/28/19 Unknown Rx Fluticasone [Flonase] 1 spray NS QDAY #1 bottle 11/28/19 Unknown Rx methylPREDNISolone [Medrol 4MG 4 mg PO FS #1 tab.ds.pk 11/28/19 Unknown Rx DOSEPAK (21 tabs)] Acetaminophen/Codeine [Tylenol 1 tab PO Q6H PRN #12 tab 12/27/20 Unknown Rx /Codeine # 3 tab] Albuterol Mdi (or & Nicu Only) 2 puff IH QID PRN #8.5 gram 12/27/20 Unknown Rx [ProAir HFA Inhaler] Azithromycin 500 mg PO DAILY #5 tablet 12/27/20 Unknown Rx amLODIPine 5 mg PO DAILY #30 tab 12/27/20 Unknown Rx dexAMETHasone [Decadron] 4 mg PO BID #6 tablet 12/27/20 Unknown Rx Albuterol Sulfate [Albuterol 0.63% 0.63 mg IH Q4HR PRN #30 ml 11/07/21 Unknown Rx NEBS] guaiFENesin/CODEINE [Robitussin AC] 5 ml PO Q12HR PRN #180 oral.liqd 11/07/21 Unknown Rx predniSONE [Deltasone] 20 mg PO DAILY #15 tablet 11/07/21 Unknown Rx ED Physical Exam - General Limitations: No Limitations General appearance: alert, in no apparent distress - Head Head exam: Present: atraumatic, normocephalic - Eye Eye exam: Present: normal appearance, PERRL, EOMI - ENT ENT exam: Present: mucous membranes moist - Neck Neck exam: Present: normal inspection - Respiratory Respiratory exam: Present: normal lung sounds bilaterally, respiratory distress, wheezes, other (Mild respiratory distress) - Cardiovascular Cardiovascular Exam: Present: regular rate, normal rhythm. Absent: systolic murmur, diastolic murmur, rubs, gallop - GI/Abdominal GI/Abdominal exam: Present: soft, normal bowel sounds. Absent: distended, tenderness - Extremities Exam Extremities exam: Present: normal inspection - Back Exam Back exam: Present: normal inspection - Neurological Exam Neurological exam: Present: alert, oriented X3, CN II-XII intact. Absent: motor sensory deficit - Psychiatric Psychiatric exam: Present: normal affect, normal mood - Skin Skin exam: Present: warm, dry, intact, normal color. Absent: rash ED Course Vital Signs 11/07/21 11:13 Temperature 98.2 F Pulse Rate 96 H Respiratory 20 Rate Blood Pressure 148/102 [Right] O2 Sat by Pulse 96 Oximetry ED Medical Decision Making - Radiology Data Radiology results: report reviewed - Medical Decision Making Patient received IV magnesium, continuous 1 hour breathing treatment, IV steroids On repeat examination of the patient at 12:45 PM shows that her symptoms have significantly improved and is breathing with ease. Critical Care Time: Yes Critical care time in (mins) excluding proc time.: 35 Critical care attestation.: If time is entered above; I have spent that time in minutes in the direct care of this critically ill patient, excluding procedure time. ED Disposition Clinical Impression: Asthma exacerbation Disposition: HOME / SELF CARE / HOMELESS Is pt being admited?: No Does the pt Need Aspirin: No Condition: Stable Instructions: Asthma, Adult Additional Instructions: return if worse Time of Disposition: 12:55
[2021-11-07] MEDS ORDERED: guaiFENesin/CODEINE 100-10MG ORAL LIQD 5 ML PO ONE (12:00)
--- NOTE | 2021-11-07 12:03 | XRay Report ---
CHEST 1 VIEW INDICATION: cough. COMPARISON: 12/27/2020 FINDINGS: SUPPORT DEVICES: None. HEART: Within normal limits. LUNGS/PLEURA: No acute air space or interstitial disease. ADDITIONAL FINDINGS: None. IMPRESSION: 1. No acute findings. Signer Name: Aj Garza MD Signed: 11/07/2021 11:58 AM Workstation Name: [id number]
[2021-11-07 13:26] VITALS: BP 154/83
== END 2021-11-07 13:27 | disposition home or self-care (01) ==
LOC: ED 10:48
DX: J45.901 Unspecified asthma with (acute) exacerbation (principal); Z87.891 Personal history of nicotine dependence
CPT/HCPCS: 71045; 94640; 96365; 96375; 99284; J2930; J3475